=== PATIENT | female | born 1990 | race Caucasian/White ===

== ENCOUNTER → 2020-11-21 | Outpatient (CLI) | payer OTHER ==
[~2020-11-21] MED LIST: ETON68IM3 IMPLANT; LORA-856 PO
[2020-11-21 15:58] LABS: BASOPHILS % (AUTO) 0 % (0-1); EOSINOPHILS % (AUTO) 1 % (1-7); LYMPHOCYTES % (AUTO) 32 % (22-44); MEAN CORPUSCULAR HEMOGLOBIN 33.7 pg (27.0-34.8); MEAN CORPUSCULAR HGB CONC 33.8 g/dL (32.4-35.8); MONOCYTES % (AUTO) 5 % (2-9); NEUTROPHILS % (AUTO) 62 % (42-75); PLATELET COUNT 322 x10^3/uL (130-400); RED CELL DISTRIBUTION WIDTH 13.8 % (9.6-15.2)
[2020-11-21 16:00] LABS: MICROSCOPIC NOT IND
[2020-11-21 16:07] LABS: ANION GAP 8 mmol/L (5-15); CALCIUM 9.1 mg/dL (8.5-10.1); CHLORIDE 107 mmol/L (98-107); CREATININE 0.79 mg/dL (0.55-1.02)
== END | disposition home or self-care (01) ==
LOC: STAR 14:42
PROVIDERS: ATTEND Obstetrics & Gynecology Gynecology
DX: Z01.812 Encounter for preprocedural laboratory examination (principal); R10.2 Pelvic and perineal pain; N94.6 Dysmenorrhea, unspecified; G89.29 Other chronic pain; Z20.822 Contact with and (suspected) exposure to COVID-19
CPT/HCPCS: 36415; 80048; 81003; 84703; 85025; U0003; U0005

== ENCOUNTER 2020-11-27 08:04 | Day surgery (SDC) | payer OTHER ==
[~2020-11-27] VITALS: Ht 162.6 cm; Wt 53.3 kg
[~2020-11-27 08:04] MED LIST changes: +ACETAMINOPHEN 325 MG TABLET PO PRN; +DIAZEPAM 5 MG/ML, 2ML IVPush PRN; +DIPHENHYDRAMINE 50 MG/ML, 1ML IVPush PRN; +EPHEDRINE 50 MG/ML, 1ML IVPush PRN; +FENTANYL PF 100 MCG/2ML IV PRN; +HALOPERIDOL 5 MG/ML IV PRN; +KETOROLAC 30 MG/1 ML IVPush PRN; +LABETALOL 5MG/ML, 20ML IV PRN; +MEPERIDINE/PF 25MG/0.5ML IVPush PRN; +METOCLOPRAMIDE 5 MG/ML, 2ML IVPush PRN; +METOPROLOL 1 MG/ML, 5ML IV PRN; +ONDANSETRON 2MG/ML, 2ML IVPush PRN; +OXYcodone 5 MG/5 ML ORAL.SOL UDC PO PRN; +PROMETHAZINE 25 MG/ML, 1ML IVPush PRN; +hydrALAzine 20 MG/ML, 1ML IV PRN; +morphine SULFATE 10 MG/ML, 1ML IVPush PRN
[2020-11-27] MEDS ORDERED: ACET325T14 PO (08:54)
[2020-11-27 08:56] VITALS: BP 118/86
[2020-11-27 08:56] LABS: HCG UR SG 1.014 (1.003-1.030)
[2020-11-27] MEDS ORDERED: CHLORHEXIDINE 15 ML UDC PO ONE (09:00)
[2020-11-27] MEDS ORDERED: ACETAMINOPHEN 500 MG TABLET PO ONE (09:00)
[2020-11-27] MEDS ORDERED: SCOPOLAMINE 1MG PATCH TD SCH (09:00)
[2020-11-27] MEDS ORDERED: DIAZEPAM 5 MG TABLET PO ONE (09:00)
[2020-11-27] MEDS ORDERED: LACTATED RINGERS 1,000 ML IV SCH (09:00)
[2020-11-27] MEDS ORDERED: SILVER NITRATE STICK TP ONE (09:51)
[2020-11-27] MEDS ORDERED: MIDAZOLAM 1 MG/ML, 2ML ONE (09:55)
[2020-11-27] MEDS ORDERED: FENTANYL PF 100 MCG/2ML ONE (09:55)
[2020-11-27] MEDS ORDERED: HYDROmorphone 1 MG/ML, 1ML INJ ONE (09:55)
[2020-11-27] MEDS ORDERED: NEOSTIGMINE 1 MG/ML, 10ML ONE (10:21)
[2020-11-27] MEDS ORDERED: KETOROLAC 30 MG/1 ML ONE (10:21)
[2020-11-27] MEDS ORDERED: DEXAMETHASONE 4 MG/ML, 1ML ONE (10:21)
[2020-11-27] MEDS ORDERED: PROPOFOL 10 MG/ML, 20ML ONE (10:21)
[2020-11-27] MEDS ORDERED: ONDANSETRON 2MG/ML, 2ML ONE (10:21)
[2020-11-27] MEDS ORDERED: ROCURONIUM 10 MG/ML,10ML ONE (10:21)
[2020-11-27] MEDS ORDERED: GLYCOPYRROLATE 0.2MG/1ML, 5ML ONE (10:21)
[2020-11-27] MEDS ORDERED: OXYcodone 5 MG/5 ML ORAL.SOL UDC ONE (12:07)
[2020-11-27] MEDS ORDERED: ACETAMINOPHEN 650 MG/20.3 ML UDC ONE (12:07)
== END 2020-11-27 14:20 | disposition home or self-care (01) ==
LOC: OUT 08:04
PROVIDERS: ATTEND Obstetrics & Gynecology Gynecology
DX: N80.3 Endometriosis of pelvic peritoneum (principal); D25.9 Leiomyoma of uterus, unspecified; N73.6 Female pelvic peritoneal adhesions (postinfective); N94.5 Secondary dysmenorrhea; N94.12 Deep dyspareunia; Z79.899 Other long term (current) drug therapy; Z88.2 Allergy status to sulfonamides; Z88.8 Allergy status to other drugs, medicaments and biological substances; Z98.890 Other specified postprocedural states; Z82.49 Family history of ischemic heart disease and other diseases of the circulatory system
CPT/HCPCS: 58662; 81025; 88305; J1100; J1170; J1885; J2250; J2405; J2704; J2710; J3010; J7120